=== PATIENT | female | born 1995 | race Caucasian/White ===

== ENCOUNTER 2016-08-29 16:46 | Emergency (ER) | payer BC, OTHER ==
[~2016-08-29] VITALS: Ht 157.5 cm; Wt 52.4 kg
[2016-08-29 16:55] VITALS: TEMP 36.8; Ht 157.5 cm; Wt 52.4 kg
[2016-08-29] MEDS ORDERED: SODIUM CHLORIDE 0.9% 1000ML 1,000 ML IV STA (17:05)
[2016-08-29] MEDS ORDERED: BCPILLS PO (17:09)
[2016-08-29 17:57] LABS: BASO % 0.6 %; BASO ABS # 0.04 K/uL (0-0.2); COMPLETE YES; EOS % 4.2 %; HEMATOCRIT 43.1 % (37-47); IG% 0.1 %; LYMPH % 16.8 %; LYMPH ABS # 1.16 K/uL (1.2-3.4); MEAN CELL VOLUME 86.5 fL (80-100); MEAN CORPUSCULAR HEMOGLOBIN 29.3 pg (25-34); MEAN CORPUSCULAR HGB CONC 33.9 g/dl (32-36); MEAN PLATELET VOLUME 9.8 fL (7.4-10.4); MONO % 7.2 %; NEUT % 71.1 %; PLATELET COUNT 259 K/uL (130-400); RED BLOOD COUNT 4.98 M/uL (4.2-5.4)
[2016-08-29 18:15] LABS: BUN/CREATININE RATIO 11.4 (10-20); CALCIUM 9.2 mg/dl (8.5-10.1); CREATININE 0.81 mg/dl (0.60-1.20); POTASSIUM 3.8 mmol/L (3.5-5.1)
--- NOTE | 2016-08-29 18:35 | DIAGNOSTIC IMAGING REPORT ---
APPENDIX ULTRASOUND HISTORY: right lower quadrant pain COMPARISON: None. FINDINGS: Transabdominal scanning of the right lower quadrant was performed. The appendix was not identified. There are no fluid collections or masses within the right lower quadrant. IMPRESSION: The appendix was not identified. Electronically signed by: Emery Trujillo M.D. 08/29/2016 6:33 PM Dictated Date/Time: 08/29/2016 6:33 PM
--- NOTE | 2016-08-29 18:38 | DIAGNOSTIC IMAGING REPORT ---
EXAMINATION: PELVIC ULTRASOUND CLINICAL HISTORY: right lower quadrant pain PAIN COMPARISON STUDY: None FINDINGS: The uterus measured 6.2 cm.. The endometrial stripe measured 3 mm. The right ovary measured not seen due to overlying bowel gas. The left ovary measured 4.9 cm maximum dimension with several cyst measuring 23.5 cm. There is no ultrasonographic evidence of ovarian torsion. It should be noted that ovarian torsion can be present with normal Doppler ultrasonographic findings. Trace amount of slightly complex debris within the cul-de-sac IMPRESSION: 1. Non visibility of the right ovary due to overlying bowel content. 2. Several left ovarian cysts Electronically signed by: Emery Trujillo M.D. 08/29/2016 6:36 PM Dictated Date/Time: 08/29/2016 6:35 PM
[2016-08-29 19:00] LABS: MANUAL MICROSCOPIC REQUIRED? YES; URINE APPEARANCE SL CLOUDY (CLEAR); URINE BILIRUBIN NEG (NEG); URINE COLOR YELLOW; URINE NITRITE NEG (NEG); UROBILINOGEN NEG (NEG)
[2016-08-29 19:03] LABS: REVIEW REQ? NO
[2016-08-29 19:34] LABS: URINE BACTERIA 1+ (NEG); URINE WBC >30 /hpf (0-5)
[2016-08-29 19:35] LABS: ZZUR CULT IF INDIC CLEAN CATCH YES
[2016-08-29] MEDS ORDERED: NITR-5 PO (20:28)
--- NOTE | 2016-08-29 20:29 | EMERGENCY ROOM VISIT NOTE ---
History First contact with patient: 16:58 Chief Complaint: ABDOMINAL PAIN Stated Complaint: ABDOMINAL PAIN-REFERRED History of Present Illness The patient is a 21 year old female who presents to the Emergency Room being referred here by Dave oviedo with complaints of right lower abdominal pain. The patient states that she has had a dull pain in her right lower quadrant for 4 days. She states it gets intense intermittently. The patient denies any nausea or vomiting. The patient states she has been having normal bowel movements. The patient denies any urinary symptoms of frequency, urgency, dysuria. The patient does admit to having a urinary tract infection approximately 4 weeks ago. The patient denies any history of ovarian cysts. The patient denies . Review of Systems 10 system review was performed and was negative unless stated otherwise history of present illness. Social History Smoking Status: Never Smoker Smokeless Tobacco Use: No Alcohol Use: occasionally Marital Status: single Housing Status: lives with significant other Occupation Status: employed Current/Historical Medications Scheduled Control Pills ( Control Pills), 1 TAB PO DAILY Allergies Coded Allergies: No Known Allergies (Unverified , 08/29/16) Physical Exam Vital Signs Date Time Temp Pulse Resp B/P (MAP) Pulse Ox O2 Delivery O2 Flow Rate FiO2 08/29/16 19:40 91 18 118/79 99 08/29/16 18:52 107 18 114/67 100 Room Air 08/29/16 16:55 36.8 87 18 132/85 96 Room Air Physical Exam GENERAL: 21-year-old white female appears in no acute distress. MENTAL Status: Alert and oriented 3. MOUTH: Mucosa is moist NECK: Supple, no lymphadenopathy noted. No carotid bruits noted. LUNGS: Clear auscultation without wheezes rales or rhonchi. CARDIAC: Regular rate and rhythm without murmur. Pulses is full and equal throughout. BACK: No CVA tenderness noted. ABDOMEN: Positive bowel sounds all 4 quadrants. Soft, minimal tenderness in the right lower quadrant otherwise nontender to palpation without organomegaly or masses. No rebound or rigidity noted EXTREMITIES: No cyanosis or edema noted. Medical Decision & Procedures ER Provider Diagnostic Interpretation: EXAMINATION: PELVIC ULTRASOUND CLINICAL HISTORY: right lower quadrant pain PAIN COMPARISON STUDY: None FINDINGS: The uterus measured 6.2 cm.. The endometrial stripe measured 3 mm. The right ovary measured not seen due to overlying bowel gas. The left ovary measured 4.9 cm maximum dimension with several cyst measuring 23.5 cm. There is no ultrasonographic evidence of ovarian torsion. It should be noted that ovarian torsion can be present with normal Doppler ultrasonographic findings. Trace amount of slightly complex debris within the cul-de-sac IMPRESSION: 1. Non visibility of the right ovary due to overlying bowel content. 2. Several left ovarian cysts Electronically signed by: Emery Trujillo M.D. 08/29/2016 6:36 PM APPENDIX ULTRASOUND HISTORY: right lower quadrant pain COMPARISON: None. FINDINGS: Transabdominal scanning of the right lower quadrant was performed. The appendix was not identified. There are no fluid collections or masses within the right lower quadrant. IMPRESSION: The appendix was not identified. Electronically signed by: Emery Trujillo M.D. 08/29/2016 6:33 PM Laboratory Results 08/29/16 17:40 Red Blood Count 4.98, Mean Corpuscular Volume 86.5, Mean Corpuscular Hemoglobin 29.3, Mean Corpuscular Hemoglobin Concent 33.9, Mean Platelet Volume 9.8, Neutrophils (%) (Auto) 71.1, Lymphocytes (%) (Auto) 16.8, Monocytes (%) (Auto) 7.2, Eosinophils (%) (Auto) 4.2, Basophils (%) (Auto) 0.6, Neutrophils # (Auto) 4.90, Lymphocytes # (Auto) 1.16, Monocytes # (Auto) 0.50, Eosinophils # (Auto) 0.29, Basophils # (Auto) 0.04 08/29/16 17:40 Test 08/29/16 17:40 White Blood Count 6.90 K/uL (4.8-10.8) Red Blood Count 4.98 M/uL (4.2-5.4) Hemoglobin 14.6 g/dL (12.0-16.0) Hematocrit 43.1 % (37-47) Mean Corpuscular Volume 86.5 fL (80-100) Mean Corpuscular Hemoglobin 29.3 pg (25-34) Mean Corpuscular Hemoglobin Concent 33.9 g/dl (32-36) Platelet Count 259 K/uL (130-400) Mean Platelet Volume 9.8 fL (7.4-10.4) Neutrophils (%) (Auto) 71.1 % Lymphocytes (%) (Auto) 16.8 % Monocytes (%) (Auto) 7.2 % Eosinophils (%) (Auto) 4.2 % Basophils (%) (Auto) 0.6 % Neutrophils # (Auto) 4.90 K/uL (1.4-6.5) Lymphocytes # (Auto) 1.16 K/uL (1.2-3.4) Monocytes # (Auto) 0.50 K/uL (0.11-0.59) Eosinophils # (Auto) 0.29 K/uL (0-0.5) Basophils # (Auto) 0.04 K/uL (0-0.2) RDW Standard Deviation 41.0 fL (36.4-46.3) RDW Coefficient of Variation 12.8 % (11.5-14.5) Immature Granulocyte % (Auto) 0.1 % Immature Granulocyte # (Auto) 0.01 K/uL (0.00-0.02) Urine Color YELLOW Urine Appearance SL CLOUDY (CLEAR) Urine pH 7.0 (4.5-7.5) Urine Specific [place] 1.010 (1.000-1.030) Urine Protein 1+ (NEG) Urine Glucose (UA) NEG (NEG) Urine Ketones NEG (NEG) Urine Occult Blood TRACE (NEG) Urine Nitrite NEG (NEG) Urine Bilirubin NEG (NEG) Urine Urobilinogen NEG (NEG) Urine Leukocyte Esterase SMALL (NEG) Urine RBC 5-10 /hpf (0-4) Urine WBC >30 /hpf (0-5) Urine Epithelial Cells 5-10 /lpf (0-5) Urine Bacteria 1+ (NEG) Anion Gap 9.0 mmol/L (3-11) Est Creatinine Clear Calc Drug Dose 85.5 ml/min Estimated GFR () 118.6 Estimated GFR (Non- 102.4 BUN/Creatinine Ratio 11.4 (10-20) Calcium Level 9.2 mg/dl (8.5-10.1) Total Bilirubin 0.3 mg/dl (0.2-1) Direct Bilirubin 0.1 mg/dl (0-0.2) Aspartate Amino Transf (AST/SGOT) 11 U/L (15-37) Alanine Aminotransferase (ALT/SGPT) 16 U/L (12-78) Alkaline Phosphatase 86 U/L (45-117) Total Protein 8.1 gm/dl (6.4-8.2) Albumin 4.0 gm/dl (3.4-5.0) Lipase 142 U/L (73-393) Medications Administered Medications (Trade) Dose Ordered Sig/Roberto Carlos Route Start Time Stop Time Status Last Admin Dose Admin Sodium Chloride 1,000 ml @ 999 mls/hr Q1H1M STAT IV 08/29/16 17:05 08/29/16 18:05 DC 08/29/16 17:42 999 MLS/HR ED Course The patient was evaluated. The patient's EMR and medication list were reviewed. IV access was obtained. The patient was given 1 L normal saline wide -open. The patient did not require any pain medications at this time. CBC and differential, renal profile, LFTs and lipase levels were ordered. Urinalysis and urine was ordered. Pelvic ultrasound as well as ultrasound of the appendix was ordered and interpreted by the radiologist as above but the appendix was not identified. Pelvic ultrasound revealed no evidence of ovarian cyst on the right. They cannot totally exclude ovarian torsion. Labs are reviewed and were unremarkable. Urinalysis was positive for leukocytes and bacteria and blood. The patient was given Macrobid one her milligrams by mouth while in the emergency room. The patient was discharged home in stable condition. Medical Decision Differential diagnoses include reflux, gastritis, gastroenteritis, pancreatitis , cholelithiasis, cholecystitis, appendicitis, mesenteric ischemia, pyelonephritis, urinary tract infection, renal colic, diverticulitis, shingles, bowel obstruction, intussusception, hernia, ovarian torsion, ruptured ovarian cyst, ectopic , . Impression Primary Impression: UTI (urinary tract infection) Additional Impression: Right lower quadrant abdominal pain Departure Information Dispostion Home / Self-Care Condition GOOD Prescriptions Nitrofurantoin Monohyd Macrocr (Macrobid) 100 Mg Cap 100 MG PO BID for 7 Days, #14 CAP Prov: Zara Trujillo PA-C 08/29/16 Referrals No Doctor, Assigned (PCP) Forms HOME CARE DOCUMENTATION FORM, IMPORTANT VISIT INFORMATION Patient Instructions ED UTI Cystitis Female, My [facility] [place] [facility] Additional Instructions Drink water. Take Macrobid as directed. If you experience any severe abdominal pain, fevers, uncontrolled nausea vomiting return to ER immediately. Problem Qualifiers Primary Impression: UTI (urinary tract infection) Urinary tract infection type: acute cystitis Hematuria presence: with hematuria Qualified Codes: N30.01 - Acute cystitis with hematuria
[2016-08-29] MEDS ORDERED: NITROFURANTOIN MONOHYDRATE 100 MG CAP PO ONE (20:30)
[2016-08-29 20:40] VITALS: BP 116/85; PULSE 92; O2SAT 98
--- NOTE | 2016-09-01 15:33 | Pharmacy Progress Note ---
ED Pharmacist Culture FollowUp Date of Service: Sep 01, 2016. Patient was sent home with a prescription for Macrobid 100mg PO BID x 7 days, which should cover the staph saprophyticus growing from the patient's URINE culture.
== END 2016-08-29 20:41 | disposition home or self-care (01) ==
LOC: C.EDB 16:48 → C.EDC 20:41
DX: N30.01 Acute cystitis with hematuria (principal); R10.31 Right lower quadrant pain

== ENCOUNTER 2017-02-10 17:05 | Emergency (ER) | payer BC ==
[~2017-02-10] VITALS: Ht 159.4 cm; Wt 55.5 kg
[~2017-02-10 17:05] MED LIST: BCPILLS PO
[2017-02-10 17:16] VITALS: TEMP 36.8; Ht 159.4 cm; Wt 55.5 kg
[2017-02-10] MEDS ORDERED: LORAZEPAM INJ 0.5 MG in SYRINGE 0.25 ML IV STA (18:05)
[2017-02-10] MEDS ORDERED: ONDANSETRON INJ 2 MG/ML 2 ML VIAL IV STA (18:05)
--- NOTE | 2017-02-10 18:11 | EMERGENCY ROOM VISIT NOTE ---
History First contact with patient: 17:54 Chief Complaint: NAUSEA Stated Complaint: SHAKING,NAUSEA,DIZZINESS Nursing Triage Summary: Presents ambulatory to triage with steady gait c/o bilateral leg tremors States that they started today about 1300 Also notes nausea and "really hot" History of Present Illness The patient is a 21 year old female who presents to the Emergency Room with complaints of shakiness and nausea that started at approximately noon this morning. The patient admits to going out last evening and consuming 3 mixed drinks. One of them was a [place] iced tea. She reports blacking out. She does not remember anything about the night. She was with her boyfriend. She is unsure if she was slipped something in her drink. She denies any other drug use. No excessive caffeine use. No recent changes in medications/ additions of medications. Review of Systems 10 system review performed and negative unless noted in HPI or below Past Medical/Surgical History Otherwise healthy Social History Smoking Status: Never Smoker Alcohol Use: occasionally Marital Status: single Housing Status: lives with significant other Occupation Status: employed Current/Historical Medications Scheduled Control Pills ( Control Pills), 1 TAB PO DAILY Physical Exam Vital Signs Date Time Temp Pulse Resp B/P (MAP) Pulse Ox O2 Delivery O2 Flow Rate FiO2 02/10/17 19:52 119 18 124/78 100 Room Air 02/10/17 17:16 36.8 100 24 151/100 99 Room Air Physical Exam GENERAL: 21-year-old female, anxious in appearance, SKIN: The skin was without rashes, erythema, edema, or bruising. HEAD: Normocephalic atraumatic. EYES: Pupils equal round and reactive to light and accommodation. Conjunctivae without injection, sclerae without icterus. Extraocular movements intact. MOUTH: Mucous membranes slightly dry NECK: Supple without nuchal rigidity. No lymphadenopathy. Cervical spine is nontender. No JVD. HEART: Tachycardic, regular rhythm without murmurs gallops or rubs. LUNGS: Clear to auscultation bilaterally without wheezes, rales or rhonchi. No accessory muscle use. ABDOMEN: Positive bowel sounds x 4.Soft, nontender, without organomegaly. No guarding or rebound tenderness. MUSCULOSKELETAL: No muscle atrophy, erythema, or edema noted. Strength 5/5 throughout. NEURO: Patient was alert and oriented to person place and time. Cerebellar function intact. Fine tremor noted. Normal sensation to touch. No focal neurological deficits. Medical Decision & Procedures Laboratory Results 02/10/17 18:30 Red Blood Count 4.73, Mean Corpuscular Volume 85.4, Mean Corpuscular Hemoglobin 29.2, Mean Corpuscular Hemoglobin Concent 34.2, Mean Platelet Volume 9.2, Neutrophils (%) (Auto) 80.5, Lymphocytes (%) (Auto) 12.6, Monocytes (%) (Auto) 4.9, Eosinophils (%) (Auto) 1.3, Basophils (%) (Auto) 0.4, Neutrophils # (Auto) 7.70, Lymphocytes # (Auto) 1.20, Monocytes # (Auto) 0.47, Eosinophils # (Auto) 0.12, Basophils # (Auto) 0.04 02/10/17 18:30 Test 02/10/17 18:30 White Blood Count 9.56 K/uL (4.8-10.8) Red Blood Count 4.73 M/uL (4.2-5.4) Hemoglobin 13.8 g/dL (12.0-16.0) Hematocrit 40.4 % (37-47) Mean Corpuscular Volume 85.4 fL (80-100) Mean Corpuscular Hemoglobin 29.2 pg (25-34) Mean Corpuscular Hemoglobin Concent 34.2 g/dl (32-36) Platelet Count 243 K/uL (130-400) Mean Platelet Volume 9.2 fL (7.4-10.4) Neutrophils (%) (Auto) 80.5 % Lymphocytes (%) (Auto) 12.6 % Monocytes (%) (Auto) 4.9 % Eosinophils (%) (Auto) 1.3 % Basophils (%) (Auto) 0.4 % Neutrophils # (Auto) 7.70 K/uL (1.4-6.5) Lymphocytes # (Auto) 1.20 K/uL (1.2-3.4) Monocytes # (Auto) 0.47 K/uL (0.11-0.59) Eosinophils # (Auto) 0.12 K/uL (0-0.5) Basophils # (Auto) 0.04 K/uL (0-0.2) RDW Standard Deviation 40.5 fL (36.4-46.3) RDW Coefficient of Variation 12.9 % (11.5-14.5) Immature Granulocyte % (Auto) 0.3 % Immature Granulocyte # (Auto) 0.03 K/uL (0.00-0.02) Urine Color YELLOW Urine Appearance CLEAR (CLEAR) Urine pH 7.0 (4.5-7.5) Urine Specific [place] 1.022 (1.000-1.030) Urine Protein NEG (NEG) Urine Glucose (UA) NEG (NEG) Urine Ketones TRACE (NEG) Urine Occult Blood NEG (NEG) Urine Nitrite NEG (NEG) Urine Bilirubin NEG (NEG) Urine Urobilinogen NEG (NEG) Urine Leukocyte Esterase NEG (NEG) Urine Test NEG (NEG) Anion Gap 6.0 mmol/L (3-11) Est Creatinine Clear Calc Drug Dose 96.8 ml/min Estimated GFR () 132.4 Estimated GFR (Non- 114.2 BUN/Creatinine Ratio 12.0 (10-20) Calcium Level 8.8 mg/dl (8.5-10.1) Total Bilirubin 0.3 mg/dl (0.2-1) Aspartate Amino Transf (AST/SGOT) 14 U/L (15-37) Alanine Aminotransferase (ALT/SGPT) 19 U/L (12-78) Alkaline Phosphatase 81 U/L (45-117) Total Protein 8.2 gm/dl (6.4-8.2) Albumin 4.1 gm/dl (3.4-5.0) Globulin 4.1 gm/dl (2.5-4.0) Albumin/Globulin Ratio 1.0 (0.9-2) Lipase 97 U/L (73-393) Thyroid Stimulating Hormone (TSH) 0.731 uIu/ml (0.300-4.500) Urine Opiates Screen NEG (NEG) Urine Methadone, Qualitative NEG (NEG) Urine Barbiturates NEG (NEG) Urine Phencyclidine (PCP) Level NEG (NEG) Ur Amphetamine/Methamphetamine NEG (NEG) MDMA (Ecstasy) Screen NEG (NEG) Urine Benzodiazepines Screen NEG (NEG) Urine Cocaine Metabolite NEG (NEG) Urine Marijuana (THC) NEG (NEG) Medications Administered Medications (Trade) Dose Ordered Sig/Roberto Carlos Route Start Time Stop Time Status Last Admin Dose Admin Sodium Chloride 1,000 ml @ 999 mls/hr Q1H1M ONCE IV 12/9/17 18:15 02/10/17 19:15 DC 02/10/17 18:48 999 MLS/HR Ondansetron HCl (Zofran Inj) 4 mg NOW STAT IV 02/10/17 18:05 02/10/17 18:07 DC 02/10/17 18:48 4 MG Lorazepam 0.5 mg/ Syringe 0.5 ml @ 0.5 mls/min NOW STAT IV 02/10/17 18:05 02/10/17 18:07 DC 02/10/17 18:48 0.5 MLS/MIN Lorazepam (Ativan 1MG Home Pack) 1 homepack UD ONCE PO 02/10/17 19:45 02/10/17 19:46 DC 02/10/17 19:55 1 HOMEPACK Ondansetron HCl (ZOFRAN ODT 4MG Home Pack) 1 homepack UD ONCE PO 02/10/17 19:45 02/10/17 19:46 DC 02/10/17 19:55 1 HOMEPACK ED Course Patient was seen and examined Vital signs including blood pressure were reviewed medications list was verified with patient Labs were obtained, and a saline lock was established The patient was medicated with Ativan 0.5 mg and Zofran 4 mg IV. She was hydrated with 1 L of normal saline. Upon reevaluation, the patient was feeling much better. We discussed the results of her workup. She voiced understanding. She was comfortable being discharged home. She was given a home pack of Zofran and Ativan I reviewed discharge instructions the patient. They voiced understanding and had no further questions. Medical Decision Differential diagnosis: Illicit drug use, dehydration, alcohol withdrawal, restless leg syndrome This patient is a 21-year-old female that presents the emergency room complaining of shakiness, nausea and dizziness. She reports drinking alcohol last evening. On exam, she was anxious in appearance. She had a fine tremor. Otherwise, no neurologic deficits. Her lab work is unremarkable. Her drug screen is negative. She had good symptomatic relief in the emergency department with a small dose of Ativan and Zofran. I believe she likely is going to mild alcohol withdrawal. Her vital signs are stable. She feels comfortable being discharged home, which I think is reasonable. She was given a home pack of Ativan 0.5 mg to take every 8 hours as needed for the next 24 hours. She was also given home Zofran. She was encouraged to increase her fluid intake, particularly with sports drinks, over the next several days. She was in agreement with this plan. She also agrees to return to the emergency department with any new, worsening or concerning symptoms This chart was completed in part utilizing [employer] Speech Voice Recognition software. Attempts were made to minimize the grammatical errors, random word insertions, pronoun errors and incomplete sentences. Any formal questions or concerns about the content, text or information contained within the body of this dictation should be directly addressed to the provider for clarification. Medication Reconcilliation Current Medication List: was personally reviewed by me Blood Pressure Screening Patient's blood pressure: Normal blood pressure Impression Primary Impression: Nausea Departure Information Dispostion Home / Self-Care Condition GOOD Referrals No Doctor, Assigned (PCP) Patient Instructions My [facility] Additional Instructions You were evaluated in the emergency department with nausea and shaking. It is possible that this is due to alcohol. Please take Ativan 1/2 tab every 8 hours as needed for shaking Please take Zofran 1 tab under the tongue every 6 hours as needed for nausea. Please try to stay well-hydrated. Increase your fluids, particularly drink sports drinks such as Gatorade. Please follow-up with your primary care physician next week. Do not hesitate to return to the emergency department with any new, worsening or concerning symptoms.
[2017-02-10] MEDS ORDERED: SODIUM CHLORIDE 0.9% 1000ML 1,000 ML IV ONE (18:15)
[2017-02-10 18:39] LABS: BASO % 0.4 %; BASO ABS # 0.04 K/uL (0-0.2); COMPLETE YES; EOS % 1.3 %; HEMATOCRIT 40.4 % (37-47); IG% 0.3 %; LYMPH % 12.6 %; MEAN CELL VOLUME 85.4 fL (80-100); MEAN CORPUSCULAR HEMOGLOBIN 29.2 pg (25-34); MEAN CORPUSCULAR HGB CONC 34.2 g/dl (32-36); MEAN PLATELET VOLUME 9.2 fL (7.4-10.4); MONO % 4.9 %; NEUT % 80.5 %; PLATELET COUNT 243 K/uL (130-400); RED BLOOD COUNT 4.73 M/uL (4.2-5.4); WHITE BLOOD COUNT 9.56 K/uL (4.8-10.8)
[2017-02-10 19:00] LABS: URINE APPEARANCE CLEAR (CLEAR); URINE BILIRUBIN NEG (NEG); URINE COLOR YELLOW; URINE NITRITE NEG (NEG); URINE SPECIFIC GRAVITY 1.022 (1.000-1.030); UROBILINOGEN NEG (NEG)
[2017-02-10 19:02] LABS: CALCIUM 8.8 mg/dl (8.5-10.1); CREATININE 0.74 mg/dl (0.60-1.20); POTASSIUM 3.7 mmol/L (3.5-5.1)
[2017-02-10 19:12] LABS: MANUAL MICROSCOPIC REQUIRED? NO; REVIEW REQ? NO
[2017-02-10 19:17] LABS: BENZODIAZEPINE, URINE NEG (NEG); COCAINE,URINE NEG (NEG); PHENCYCLIDINE, URINE NEG (NEG)
[2017-02-10 19:19] LABS: THYROID STIMULATING HORMONE 0.731 uIu/ml (0.300-4.500)
[2017-02-10] MEDS ORDERED: ATIVAN 1MG HOMEPACK PO ONE (19:45)
[2017-02-10] MEDS ORDERED: ONDANSETRON HOME PACK 4MG OD TAB PO ONE (19:45)
[2017-02-10 19:52] VITALS: BP 124/78; PULSE 119; O2SAT 100
== END 2017-02-10 20:01 | disposition home or self-care (01) ==
LOC: C.EDB 17:06 → C.EDA 20:01
DX: R11.0 Nausea (principal); Z79.3 Long term (current) use of hormonal contraceptives